=== PATIENT | female | born 2000 | race Caucasian/White ===

== ENCOUNTER 2020-09-05 19:19 | Emergency (ER) | payer OTHER ==
[~2020-09-05] VITALS: Ht 160 cm; Wt 96.6 kg
--- OUTSIDE RECORDS SUMMARY | 2020-09-05 21:54 | XMS ---
PreManage Notification: [employer] Events No recent Security Events currently on file CRITERIA MET - [facility] 2 Visits in 30 Days CARE PROVIDERS INDIGO CHILDERS Physician Environmental Research Project Manager Current PHONE: [phone] GABI KRAFT Nurse Practitioner: Family Current PHONE: [phone] [place] has no Care Guidelines for this patient. Lauren VISIT COUNT (12 MO.) [address] TOTAL 3 NOTE: Visits indicate total known visits. ED/UCC VISIT TRACKING (12 MO.) 09/05/2020 19:20 [facility] TYPE: Emergency COMPLAINT: - VAGINAL BLEEDING AND CRAMPING 09/03/2020 14:31 [facility] [place] TYPE: Emergency DIAGNOSES: - Threatened - + BLEEDING CRAMPING 11/04/2019 15:25 [facility] [place] TYPE: Emergency DIAGNOSES: - chills/body aches - Influenza due to other identified influenza virus with other INPATIENT VISIT TRACKING (12 MO.) No inpatient visits to display in this time frame [id number]
== END 2020-09-06 00:33 | disposition home or self-care (01) ==
LOC: ED 19:19
DX: O20.0 Threatened abortion (principal); Z3A.01 Less than 8 weeks gestation of pregnancy; F17.200 Nicotine dependence, unspecified, uncomplicated
CPT/HCPCS: 76801; 76817; 80053; 81001; 83690; 83735; 84702; 85025; 99284-25